=== PATIENT | female | born 1975 | race Caucasian/White ===

== ENCOUNTER 2016-11-27 12:37 | Emergency (ER) | payer BC, MEDICAID ==
[~2016-11-27] VITALS: Ht 172.1 cm; Wt 78.0 kg
[~2016-11-27 12:37] MED LIST: CITA20 PO; CLON0.5T PO; METF500 PO
[2016-11-27 12:39] VITALS: BP 127/65; PULSE 89; RESP 14; TEMP 98; O2SAT 99
[2016-11-27] MEDS ORDERED: AUGM875T PO (13:50)
[2016-11-27] MEDS ORDERED: IBUP800T23 PO (13:50)
[2016-11-27] MEDS ORDERED: IPRA0.03 EACH NARE (13:50)
--- NOTE | 2016-11-27 13:50 | PD ---
HPI Chief Complaint: Cold / Flu Symptoms Time Seen by Provider: 13:44 Travel History International Travel<30 days: No Contact w/Intl Traveler<30days: No Traveled to known affect area: No History of Present Illness HPI Patient is a 40-year-old female who presents emergency for evaluation of nasal congestion, cough, headache and pressure. Patient states her symptoms have been going on for approximately 2 weeks. She has not traveled any over-the- counter therapies to relieve her symptoms. She states that she is fatigued because she is not sleeping well at night. She states her cough is dry, nonproductive. She denies any fevers but reports chills. PFSH Past Medical History Asthma: Yes Anxiety: Yes Depression: Yes Cancer: No Cardiovascular Problems: No COPD: Yes Diabetes: Yes Diminished Hearing: No Gastrointestinal Disorders: Yes (GALLSTONES) Genitourinary: No Headaches: Yes Immune Disorder: No Musculoskeletal: No Neurologic: No Reproductive: No Pneumonia: Yes (BRONCHIAL) Thyroid Disease: Yes ?: Not LMP: 1 WEEK : 3 Para: 3 : 1 Tubal Ligation: Yes Past Surgical History Appendectomy: Yes Cholecystectomy: Yes Gynecologic Surgery: Yes (TUBAL LIGATION) Social History Alcohol Use: Yes (OCC.) Tobacco Use: Yes (1/2PPD) Substance Use: No Allergies-Medications (Allergen,Severity, Reaction): Coded Allergies: No Known Allergies (Verified , 11/27/16) Reported Meds & Prescriptions Reported Meds & Active Scripts Active Glucophage 500 mg (Metformin HCl) 500 Mg Tab 500 Mg PO BIDPC PRN 30 Days Clonazepam 0.5 Mg Tab 0.5 Mg PO DAILY PRN Celexa 20 Mg Tab (Citalopram Hydrobromide) 20 Mg Tab 20 Mg PO DAILY 30 Days Review of Systems Except as stated in HPI: all other systems reviewed are Neg General / Constitutional: Positive: Chills, No: Fever HENT: Positive: Headaches, Rhinitis, Congestion, No: Sore Throat, Earache Cardiovascular: No: Chest Pain or Discomfort Respiratory: Positive: Cough, No: Shortness of Breath, Wheezing Gastrointestinal: Positive: Nausea, No: Vomiting, Diarrhea, Abdominal Pain Neurologic: No: Weakness, Dizziness Physical Exam Narrative GENERAL: Well-developed, well-nourished, alert female. Resting comfortably in no acute distress. SKIN: Warm and dry. HEAD: Atraumatic. Normocephalic. Tenderness to palpation over maxillary and ethmoid sinuses. EYES: Pupils equal and round. No scleral icterus. No injection or drainage. ENT: No nasal bleeding, clear discharge. Nasal turbinates appear edematous. Mucous membranes pink and moist. Posterior pharynx no cobblestoning appearance. NECK: Trachea midline. No JVD. CARDIOVASCULAR: Regular rate and rhythm. No murmur appreciated. RESPIRATORY: No accessory muscle use. Clear to auscultation. Breath sounds equal bilaterally. GASTROINTESTINAL: Abdomen soft, non-tender, nondistended. Hepatic and splenic margins not palpable. MUSCULOSKELETAL: No obvious deformities. No clubbing. No cyanosis. No edema. NEUROLOGICAL: Awake and alert. No obvious cranial nerve deficits. Motor grossly within normal limits. Normal speech. PSYCHIATRIC: Appropriate mood and affect; insight and judgment normal. Data Data Last Documented VS Vital Signs Date Time Temp Pulse Resp B/P Pulse Ox O2 Delivery O2 Flow Rate FiO2 11/27/16 12:39 98.0 89 14 127/65 99 Room Air [facility] Medical Decision Making Medical Screen Exam Complete: Yes Emergency Medical Condition: Yes Interpretation(s) Vital Signs Date Time Temp Pulse Resp B/P Pulse Ox O2 Delivery O2 Flow Rate FiO2 11/27/16 12:39 98.0 89 14 127/65 99 Room Air Differential Diagnosis Viral URI versus bronchitis versus pneumonia versus COPD exacerbation versus sinusitis versus other Narrative Course Patient is a 40 year female who presents emergency for evaluation of cough, congestion, sinus headache and pressure. Patient's symptoms have been ongoing for approximately 2 weeks. Her cough is dry and nonproductive, her lungs are clear. Her symptoms appear most consistent with an acute sinusitis. Patient will be given a prescription for antibiotics as well as nasal spray. She was encouraged to trial [id number] Mucinex DM or Sudafed, or similar agent to help with her nasal congestion and sinus pressure. Her vital signs are stable, she is afebrile. Patient was encouraged to return to emergency department for any new or worsening symptoms, she was further encouraged follow-up with her primary doctor. Patient verbalizes understanding of these instructions. She is stable for discharge. Diagnosis Primary Impression: Acute sinusitis Qualified Code: J01.90 - Acute sinusitis, recurrence not specified, unspecified location Referrals: Primary Care Physician Patient Instructions: General Instructions, Sinusitis (ED) Additional Instructions: Medications as directed Obtain [id number] Mucinex DM or Sudafed or similar agent and use as directed for nasal congestion and sinus pressure Follow-up with your primary doctor Return to emergency department for any new or worsening symptoms Med/Other Pt SpecificInfo: Prescription(s) given Scripts Ibuprofen 800 Mg [id number] Mg PO Q8H PRN (Pain/Inflammation) 10 Days Ref 0 Prov:Sabine Turcios 11/27/16 Amoxicillin-Clavulanate (Augmentin)875-125 mg [id number] Mg PO BID 10 Days Ref 0 not for use in CrCl <30 ml/min. Prov:Sabine Turcios 11/27/16 Ipratropium Nasal 0.03% Spray1 [place] EACH NARE Q8HR PRN (NASAL CONGESTION) #1 Prov:Sabine Turcios 11/27/16 Disposition: 01 DISCHARGE HOME Condition: Stable Sabine Turcios Nov 27, 2016 13:50
== END 2016-11-27 14:00 | disposition home or self-care (01) ==
LOC: NEPB 12:37
DX: J01.90 Acute sinusitis, unspecified (principal); F17.210 Nicotine dependence, cigarettes, uncomplicated
CPT/HCPCS: 99283